=== PATIENT | female | born 1945 | race Caucasian/White ===

== ENCOUNTER 2017-02-12 10:55 | Outpatient (CLI) | payer MEDICARE, OTHER ==
[2017-02-12 18:10] LABS: BASOPHILS # (AUTO) 0.1 10^3/uL (0.0-0.1); BASOPHILS % (AUTO) 0.8 %; EOSINOPHILS # (AUTO) 0.1 10^3/uL (0.0-0.7); EOSINOPHILS % (AUTO) 1.8 %; HCT - HEMATOCRIT 38.4 % (37.0-47.0); HGB - HEMOGLOBIN 13.1 g/dL (12.0-16.0); LYMPHOCYTES # (AUTO) 1.7 10^3/uL (1.5-3.5); LYMPHOCYTES % (AUTO) 24.6 %; MEAN CORPUSCULAR HEMOGLOBIN 33.4 pg (27.0-31.0); MEAN CORPUSCULAR VOLUME 98.2 fL (81.0-99.0); MEAN PLATELET VOLUME 8.5 fL (7.9-10.8); MONOCYTES # (AUTO) 0.5 10^3/uL (0.0-1.0); MONOCYTES % (AUTO) 7.5 %; NEUTROPHILS # (AUTO) 4.5 10^3/uL (1.5-6.6); NEUTROPHILS % (AUTO) 65.3 %; RED BLOOD COUNT 3.91 10^6/uL (4.20-5.40); RED CELL DISTRIBUTION WIDTH 13.4 % (12.0-15.0); UNCORRECTED WHITE BLOOD COUNT 6.9 x10^3/uL; WHITE BLOOD COUNT 6.9 x10^3/uL (4.8-10.8)
[2017-02-12 18:46] LABS: ALBUMIN/GLOBULIN RATIO 1.4 (1.0-2.2); BILIRUBIN,TOTAL 0.7 mg/dL (0.2-1.0); CALCIUM 9.3 mg/dL (8.5-10.3); CREATININE 0.6 mg/dL (0.4-1.0); POTASSIUM 4.3 mmol/L (3.5-5.0); TOTAL PROTEIN 7.3 g/dL (6.7-8.2)
== END 2017-02-12 10:56 | disposition home or self-care (01) ==
LOC: LAB.F 10:55
PROVIDERS: ATTEND Physician Assistant Medical
DX: R25.2 Cramp and spasm (principal); Z86.2 Personal history of diseases of the blood and blood-forming organs and certain disorders involving the immune mechanism
CPT/HCPCS: 36415; 80053; 85025

== ENCOUNTER 2017-02-23 13:56 | Outpatient (CLI) | payer MEDICARE, OTHER ==
--- NOTE | 2017-02-23 16:30 | Ultrasound Report ---
RIGHT BREAST ULTRASOUND: 02/23/2017 CLINICAL INDICATION: Pain and possible palpable abnormality 12 o'clock right breast. TECHNIQUE: Real-time scanning was performed with union representative static images obtained. FINDINGS: Ultrasound of the right upper breast was performed. Heterogeneous parenchyma is seen. No discrete solid or cystic mass is identified. No sonographically suspicious findings are appreciated . IMPRESSION: NEGATIVE EXAMINATION. RECOMMENDATION: Routine annual screening unless otherwise clinically indicated. BIRADS CATEGORY 1 - NEGATIVE. JOB #: [id number] EXT JOB #:
--- NOTE | 2017-02-23 16:32 | Ultrasound Report ---
LEFT BREAST ULTRASOUND: 02/23/2017 CLINICAL INDICATION: Pain and possible palpable abnormality lateral left breast. TECHNIQUE: Real-time scanning was performed with commercial representative static images obtained. FINDINGS: Ultrasound of the 3 o'clock position left breast was performed. There is an incidental co mplicated cyst at 2 cm from the nipple, measuring 4 mm. No sonographically suspicious findings are i dentified. IMPRESSION: BENIGN FINDINGS. RECOMMENDATION: Routine annual screening unless otherwise clinically indicated. BIRADS CATEGORY 2 - BENIGN FINDINGS. JOB #: [id number] EXT JOB #:[id number]
--- NOTE | 2017-02-23 16:34 | Mammography Report ---
DIGITAL DIAGNOSTIC MAMMOGRAM: 02/23/2017 CLINICAL INDICATION: Pain and palpable abnormalities on clinical examination. COMPARISON: 02/09/2015, 01/12/2014, 01/04/2013, 10/07/2011, 01/09/2010 TECHNIQUE: Bilateral CC and MLO views, bilateral true lateral views, right laterally exaggerated sales representative aircraft niocaudal view. FINDINGS: The breasts demonstrate heterogeneously dense fibroglandular parenchyma bilaterally. Coar se and punctate, typically benign calcifications are present. No suspicious masses, clustered microc alcifications, or regions of architectural distortion are identified. Specifically, no mammographic abnormality is appreciated at the 12 o'clock position of the right breast or the 3 o'clock position o f the left breast. Please also refer to bilateral breast ultrasounds of the same day. IMPRESSION: BENIGN FINDINGS. RECOMMENDATION: Routine annual screening unless otherwise clinically indicated. BIRADS CATEGORY 2 - BENIGN FINDINGS. STANDARD QUALIFYING STATEMENTS 1. This examination was reviewed with the aid of Computer-Aided Detection (CAD). 2. A negative or benign imaging report should not delay biopsy if clinically suspicious findings are present. Consider surgical consultation if warranted. More than 5% of cancers are not identified by i cristina. 3. Dense breasts may obscure an underlying neoplasm. JOB #: [id number] EXT JOB #:[id number]
== END 2017-02-23 13:57 | disposition home or self-care (01) ==
LOC: DI 13:56
PROVIDERS: ATTEND Physician Assistant Medical
DX: N64.4 Mastodynia (principal)
CPT/HCPCS: 76642; G0204; 77066

== ENCOUNTER 2017-03-10 13:11 | Outpatient (CLI) | payer MEDICARE, OTHER ==
--- NOTE | 2017-03-12 15:25 | DEXA Report ---
DEXA: 03/10/2017 HISTORY: Postmenopausal female, smoker. TECHNIQUE: Dual energy x-ray absorptiometry (DXA) was performed on a [employer] system. Regions measured are the AP spine, femoral neck, and, if needed, forearm. COMPARISON: None. In accordance with the International Society for Clinical Densitometry (ISCD) guidelines, data from previous exams may be reanalyzed using current recommendations and techniques. This is done to allow a more accurate basis for comparison with the current study. FINDINGS LUMBAR SPINE DATA: REGION BMD (g/cm/cm) T-SCORE Z-SCORE L1 0.644 -4.1 -2.1 L2 0.702 -4.1 -2.2 L3 0.842 -3.0 -1.0 L4 0.904 -2.5 -0.5 TOTAL 0.781 -3.3 -1.4 NOTE: All evaluable vertebrae are used for classification. HIP DATA: REGION BMD (g/cm/cm) T-SCORE Z-SCORE Neck 0.683 -2.6 -0.6 TOTAL 0.691 -2.5 -0.7 NOTE: The femoral neck or total proximal femur, whichever is lowest, is used for classification. IMPRESSION THE WHO CLASSIFICATION BASED ON THE INTERNATIONAL REFERENCE STANDARD: OSTEOPOROSIS. FRACTURE RISK: HIGH. RECOMMENDATION: Patients with diagnosis of osteoporosis or osteopenia should have regular bone mineral density assessment. For those eligible for Medicare, routine testing is allowed once every 2 years. Testing frequency can be increased for patients who have rapidly progressing disease or for those who are receiving medical therapy to restore bone mass. COMMENT: World Health Organization (WHO) definitions for osteoporosis and osteopenia: NORMAL BMD: T-score at -1.0 or higher, fracture risk is low. OSTEOPENIA BMD: T-score between -1.0 and -2.5, fracture risk is increased. OSTEOPOROSIS BMD: T-score at -2.5 or lower, fracture risk high. National Osteoporosis Foundation recommends: 1. Obtain adequate dietary calcium (at least 1200 mg per day) and vitamin D (400 -800 international units per day). 2. Participate, as appropriate, in regular weightbearing and muscle- strengthening exercise. 3. Avoid tobacco use and reduce alcohol and caffeine intake. 4. For more detailed information see the website at www.NOF.org. MTDD
== END 2017-03-10 13:12 | disposition home or self-care (01) ==
LOC: DI 13:11
PROVIDERS: ATTEND Physician Assistant Medical
DX: Z13.820 Encounter for screening for osteoporosis (principal); M81.0 Age-related osteoporosis without current pathological fracture; Z78.0 Asymptomatic menopausal state
CPT/HCPCS: 77080

== ENCOUNTER 2017-08-10 10:05 | Outpatient (CLI) | payer MEDICARE, OTHER ==
[2017-08-10 11:08] LABS: BUN - BLOOD UREA NITROGEN 16 mg/dL (6-20); CALCIUM 9.3 mg/dL (8.5-10.3); CARBON DIOXIDE - CO2 26 mmol/L (21-32); CHLORIDE 100 mmol/L (101-111); CHOL/HDL RATIO 2.5 (<4.4); CHOLESTEROL 160 mg/dL; CREATININE 0.6 mg/dL (0.4-1.0); GFR - MDRD 98 (>89); GLUCOSE 92 mg/dL (70-100); HDL CHOLESTEROL 65 mg/dL; SODIUM 135 mmol/L (135-145)
[2017-08-10 11:31] LABS: LDL CHOLESTEROL,DIRECT 65 mg/dL
== END 2017-08-10 10:06 | disposition home or self-care (01) ==
LOC: LAB.F 10:05
PROVIDERS: ATTEND Internal Medicine
DX: Z00.00 Encounter for general adult medical examination without abnormal findings (principal); E87.1 Hypo-osmolality and hyponatremia; Z13.220 Encounter for screening for lipoid disorders
CPT/HCPCS: 36415; 80048; 80061; 83721

== ENCOUNTER 2018-03-01 10:15 | Outpatient (CLI) | payer MEDICARE, OTHER ==
--- NOTE | 2018-03-02 08:57 | Mammography Report ---
Reason: SCREENING MAMMO Procedure Date: 03/01/2018 Accession Number: [id number] / [id number] Procedure: [facility]CI - Screening Mammo w/Sam CPT Code: FULL RESULT: EXAM: Screening Mammo w/Sam DATE: 03/01/2018 10:22 AM CLINICAL HISTORY: 72-year-old female presents for screening. TECHNIQUE: Bilateral CC and MLO views were obtained. COMPARISON: 02/23/2017, 02/09/2015, 01/12/2014, 01/04/2013. FINDINGS: The breasts demonstrate extremely dense parenchyma bilaterally, limiting the sensitivity of mammography. Typically benign coarse right breast calcifications are noted. No suspicious masses, clustered microcalcifications, or regions of architectural distortion are identified. IMPRESSION: Benign findings RECOMMENDATION: Routine annual screening unless otherwise clinically indicated. BIRADS CATEGORY 2: Benign findings STANDARD QUALIFYING STATEMENTS: 1. This examination was not reviewed with the aid of Computer-Aided Detection (CAD). 2. A negative or benign imaging report should not delay biopsy if clinically suspicious findings are present. Consider surgical consultation if warranted. More than 5% of cancers are not identified by imaging. 3. Dense breasts may obscure an underlying neoplasm. 4. This examination was reviewed with the aid of 3D breast imaging (tomosynthesis).
== END 2018-03-01 10:16 | disposition home or self-care (01) ==
LOC: DI 10:15
DX: Z12.31 Encounter for screening mammogram for malignant neoplasm of breast (principal)
CPT/HCPCS: 77063; 77067

== ENCOUNTER 2019-03-02 10:15 | Outpatient (CLI) | payer MEDICARE, OTHER ==
--- NOTE | 2019-03-02 12:52 | Mammography Report ---
Reason: ROUTINE MAMMO Procedure Date: 03/02/2019 Accession Number: [id number] / [id number] Procedure: MGS - Screening Mammo Dig Bilat CPT Code: Final Report FULL RESULT: EXAM: Screening Mammo Dig Bilat DATE: 03/02/2019 10:33 AM CLINICAL HISTORY: The patient is an asymptomatic 73-year-old female presented for screening mammography. No reported personal nor family history of breast cancer. TECHNIQUE: (B) - Bilateral CC and MLO views were obtained. Exaggerated CC views obtained. COMPARISON: 03/01/2018, 02/23/2017, 02/09/2015, 01/12/2014, 01/04/2013 PARENCHYMAL PATTERN: (D) - The breasts demonstrate heterogeneously dense fibroglandular parenchyma bilaterally. This pattern limits mammographic sensitivity. FINDINGS: The pattern of asymmetry is stable given positional variation. Scattered and loosely-grouped calcifications again noted in both breasts. There are no suspicious masses, pleomorphic calcifications, or areas of distortion. IMPRESSION: Benign findings. BI-RADS category 2. RECOMMENDATION: (ANNUAL) - Recommend routine annual screening mammography. BI-RADS CATEGORY: (2) - Benign Findings. STANDARD QUALIFYING STATEMENTS: 1. This examination was not reviewed with the aid of Computer-Aided Detection (CAD). 2. A negative or benign imaging report should not preclude biopsy if clinically suspicious findings are present. 3. Dense breasts may obscure an underlying neoplasm. 4. This examination was reviewed the aid of 3D breast imaging (tomosynthesis).
== END 2019-03-02 10:16 | disposition home or self-care (01) ==
LOC: DI.S 10:15
DX: Z12.31 Encounter for screening mammogram for malignant neoplasm of breast (principal)
CPT/HCPCS: 77067

== ENCOUNTER 2019-05-20 08:01 | Outpatient (CLI) | payer MEDICARE, OTHER ==
[2019-05-20 10:30] LABS: BASOPHILS # (AUTO) 0.1 10^3/uL (0.0-0.1); BASOPHILS % (AUTO) 0.7 %; EOSINOPHILS # (AUTO) 0.2 10^3/uL (0.0-0.7); EOSINOPHILS % (AUTO) 3.3 %; HGB - HEMOGLOBIN 13.3 g/dL (12.0-16.0); LYMPHOCYTES # (AUTO) 1.3 10^3/uL (1.5-3.5); LYMPHOCYTES % (AUTO) 19.9 %; MEAN CORPUSCULAR HEMOGLOBIN 34.4 pg (27.0-31.0); MEAN CORPUSCULAR HGB CONC 34.7 g/dL (32.0-36.0); MEAN PLATELET VOLUME 10.3 fL (7.9-10.8); MONOCYTES # (AUTO) 0.5 10^3/uL (0.0-1.0); MONOCYTES % (AUTO) 6.9 %; NEUTROPHILS # (AUTO) 4.6 10^3/uL (1.5-6.6); NEUTROPHILS % (AUTO) 68.9 %; PLT - PLATELET COUNT 320 10^3/uL (130-450); RED BLOOD COUNT 3.87 10^6/uL (4.20-5.40); RED CELL DISTRIBUTION WIDTH 13.1 % (12.0-15.0); WHITE BLOOD COUNT 6.7 x10^3/uL (4.8-10.8)
[2019-05-20 10:44] LABS: ALBUMIN 4.2 g/dL (3.2-5.5); ALBUMIN/GLOBULIN RATIO 1.1 (1.0-2.2); BILIRUBIN,TOTAL 0.8 mg/dL (0.2-1.0); CALCIUM 9.3 mg/dL (8.5-10.3); CREATININE 0.7 mg/dL (0.4-1.0); TOTAL PROTEIN 8.1 g/dL (6.7-8.2)
== END 2019-05-20 08:02 | disposition home or self-care (01) ==
LOC: LAB.S 08:01
PROVIDERS: ATTEND Family Medicine
DX: R51 Headache (principal); R25.2 Cramp and spasm; Z86.2 Personal history of diseases of the blood and blood-forming organs and certain disorders involving the immune mechanism
CPT/HCPCS: 36415; 80053; 80061; 83721; 84443; 85025

== ENCOUNTER 2019-06-27 13:02 | Outpatient (CLI) | payer MEDICARE, OTHER ==
[2019-06-27] MEDS ORDERED: GADOBUTROL 7.5 MMOL/7.5 ML VIAL ONE (13:15)
[2019-06-27] MEDS ORDERED: GADOBUTROL 7.5 MMOL/7.5 ML VIAL IVP ONE (13:55)
--- NOTE | 2019-06-27 15:50 | MRI Report ---
Reason: HEADACHE Procedure Date: 06/27/2019 Accession Number: [id number] / [id number] Procedure: MRI - Brain W/WO CPT Code: Final Report FULL RESULT: MRI BRAIN WITHOUT AND WITH CONTRAST INDICATION: 73-year-old female. Right-sided headache for a few months. Please assess. TECHNIQUE: 1. Sagittal T1. 2. Coronal fat-saturated T2. 3. Axial T1 MP rage, FLAIR, T2, T2* GRE and DWI. 4. 5.5 cc IV Gadavist. Postcontrast T1 3D MP RAGE axial sequence. COMPARISON: None. FINDINGS: There is mild generalized prominence of the cerebral cortical sulci. Ventricular size is normal. There is a small focus of T2/FLAIR hyperintensity involving the cortex and underlying white matter, along the inferior margin of the left central sulcus (see images 17 and 16 of series 701). This appears to relate to an underlying developmental venous anomaly, capillary telangiectasia or similar benign vascular malformation (see images 75 and 76 of series 1002 and see image 78 of series 1003). A mild amount of white matter disease is demonstrated in the supratentorial brain, manifested as small T2 hyperintensities that are scattered throughout the periventricular, deep and subcortical white matter bilaterally. A frontoparietal distribution predominates. This most likely represents chronic microangiopathy. There appear to be flow voids for the main intracranial arteries. No abnormal diffusion restriction is demonstrated. No evidence of acute or chronic hemorrhage on the T2* GRE sequence. No enhancing space-occupying mass lesion is demonstrated. No pathologic meningeal or cranial nerve enhancement is identified. There appears to be normal intravascular contrast enhancement in the dural venous sinuses and deep venous structures. This effectively excludes the possibility of dural venous sinus thrombosis. Limited assessment of the orbits reveals no gross pathology. There is mild mucosal thickening in a few ethmoid air cells. Minor mucosal thickening is seen in the posterior recess of the left chamber of the sphenoid sinus. The paranasal sinuses are otherwise essentially clear. No air-fluid level is identified. No mastoid or middle ear effusion is demonstrated. The marrow signal intensity in the regional skeletal structures is unremarkable. IMPRESSION: 1. Small focus of T2 hyperintensity in white matter and cortex and deep to the left central sulcus appears to relate to underlying developmental venous anomaly, capillary telangiectasia or similar benign vascular malformation. 2. A mild amount of white matter disease is identified in the supratentorial brain, likely representing chronic microangiopathy. 3. No other significant intracranial pathology is demonstrated. In particular, there is no evidence of infarction, hemorrhage, space-occupying mass lesion or other potential cause for headaches.
== END 2019-06-27 13:03 | disposition home or self-care (01) ==
LOC: DI 13:02
PROVIDERS: ATTEND Family Medicine
DX: R90.82 White matter disease, unspecified (principal)
CPT/HCPCS: 70553; A9585

== ENCOUNTER 2020-02-20 15:28 | Outpatient (CLI) | payer MEDICARE, OTHER ==
--- NOTE | 2020-02-21 15:07 | Mammography Report ---
BILATERAL DIGITAL SCREENING MAMMOGRAM 3D/2D: 02/20/2020 CLINICAL: Routine screening. Comparison is made to exams dated: 03/02/2019 mammogram, 03/01/2018 mammogram, 02/23/2017 mammogram, and 02/09/2015 mammogram - [facility]. The tissue of both breasts is extremely den se, which lowers the sensitivity of mammography. There are benign calcifications in the right breast. No significant masses, calcifications, or other findings are seen in either breast. There has been no significant interval change. IMPRESSION: BENIGN There is no mammographic evidence of malignancy. A 1 year screening mammogram is recommended. This exam was interpreted at Station ID: [id number]. NOTE: For mammograms, a report in lay terms will be sent to the patient. Approximately 15% of breast malignancies will not be visualized mammographically. In the management of a palpable breast mass, a negative mammogram must not discourage biopsy of a clinically suspicious lesion. Electronically Signed By: Bradley scott/kelley:02/21/2020 13:31:19 ACR BI-RADS Category 2: Benign Finding(s) 3342F PARENCHYMAL PATTERN: (VD) - The breast(s) demonstrate(s) extremely dense parenchyma, limiting the sen sitivity of mammography. BI-RADS CATEGORY: (2) - 2 RECOMMENDATION: (ANNUAL) - Recommend routine annual screening mammography. [id number] 1 year screening LATERALITY: (B)
== END 2020-02-20 15:29 | disposition home or self-care (01) ==
LOC: DI 15:28
DX: Z12.31 Encounter for screening mammogram for malignant neoplasm of breast (principal)
CPT/HCPCS: 77063; 77067

== ENCOUNTER 2021-06-17 08:57 | Outpatient (CLI) | payer MEDICARE, OTHER ==
--- NOTE | 2021-06-18 08:35 | Mammography Report ---
BILATERAL DIGITAL SCREENING MAMMOGRAM 3D/2D WITH EXAGGERATED CC: 06/17/2021 CLINICAL: Routine screening. Comparison is made to exams dated: 03/02/2019 mammogram, 03/01/2018 mammogram, and 02/23/2017 mammog [facility]. The tissue of both breasts is extremely dense, which lowers the sensitivity of mammography. There are benign calcifications in the right breast. No significant masses, calcifications, or other findings are seen in either breast. There has been no significant interval change. IMPRESSION: BENIGN There is no mammographic evidence of malignancy. A 1 year screening mammogram is recommended. This exam was interpreted at Station ID: [id number]. NOTE: For mammograms, a report in lay terms will be sent to the patient. Approximately 15% of breast malignancies will not be visualized mammographically. In the management of a palpable breast mass, a negative mammogram must not discourage biopsy of a clinically suspicious lesion. Electronically Signed By: Heidi chung/kelley:06/17/2021 11:15:48 ACR BI-RADS Category 2: Benign Finding(s) 3342F PARENCHYMAL PATTERN: (VD) - The breast(s) demonstrate(s) extremely dense parenchyma, limiting the sen sitivity of mammography. BI-RADS CATEGORY: (2) - 2 RECOMMENDATION: (ANNUAL) - Recommend routine annual screening mammography. [id number] 1 year screening LATERALITY: (B)
== END 2021-06-17 08:58 | disposition home or self-care (01) ==
LOC: DI.S 08:57
PROVIDERS: ATTEND Nurse Practitioner Family
DX: Z12.31 Encounter for screening mammogram for malignant neoplasm of breast (principal)

== ENCOUNTER 2021-09-17 10:56 | Outpatient (CLI) | payer MEDICARE, OTHER ==
--- NOTE | 2021-09-17 11:42 | CT Report ---
PROCEDURE: Low Dose Lung Cancer Screen INDICATIONS: OSTEOPENIA, SMOKER TECHNIQUE: Noncontrast low-dose images were acquired from the pulmonary apices to the posterior costophrenic ang les. Multiplanar MIP reformats were then acquired. For radiation dose reduction, the following was used: automated exposure control, adjustment of mA and/or kV according to patient size. COMPARISON: None. FINDINGS: Image quality: Excellent. Lungs and pleura: There is a pleural-based density in the extreme right apex which most likely repre sents scarring. It measures 1.5 x 0.7 cm on image 54/4. No other pulmonary nodular densities are iden tified. Mild centrilobular emphysema. Mediastinum: Heart size is normal. No pericardial effusion. No mediastinal adenopathy by size crit eria. Thoracic aorta and central pulmonary arteries are normal in size. Esophagus is normal in lucy luis daniel. No hiatal hernia. Bones and chest wall: No suspicious bony lesions. No vertebral body compression fractures. No axil ramesh or supraclavicular adenopathy by size criteria. Thyroid is grossly unremarkable as visualized. Abdomen: Multiple low-density liver lesions most likely represent cysts versus hemangiomata. There is moderate left hydronephrosis. Tiny right renal stones are noted. There is no right hydronephrosis. IMPRESSION: 1. LungRads Category 3: Probably benign findings-short term follow up suggested; includes nodules wit h a low likelihood of becoming a clinically significant cancer: Probable nodular scarring in the righ t apex. 2. 6 month follow-up low-dose noncontrast CT of the chest is recommended for further evaluation. 3. Clinically significant or potentially clinically significant findings (nonlung cancer): Mild centr ilobular emphysema, moderate left hydronephrosis, right nephrolithiasis. Comment: Recommend CT KUB for evaluation of moderate left hydronephrosis. Reviewed by: Nick Smiley MD on 09/17/2021 11:40 AM PDT Approved by: Nick Smiley MD on 09/17/2021 11:40 AM PDT Station ID: [id number]
== END 2021-09-17 10:57 | disposition home or self-care (01) ==
LOC: DI 10:56
PROVIDERS: ATTEND Nurse Practitioner Family
DX: Z12.2 Encounter for screening for malignant neoplasm of respiratory organs (principal); J43.2 Centrilobular emphysema; N13.30 Unspecified hydronephrosis; N20.0 Calculus of kidney; F17.210 Nicotine dependence, cigarettes, uncomplicated

== ENCOUNTER 2021-09-19 10:49 | Outpatient (CLI) | payer MEDICARE, OTHER ==
--- NOTE | 2021-09-20 09:29 | DEXA Report ---
PROCEDURE: Dexa Spine and/or Hip INDICATIONS: OSTEOPENIA TECHNIQUE: Dual energy x-ray absorptiometry (DXA) was performed on a [employer] System. Regions measur ed are the AP Spine, femoral neck, and if needed forearm. COMPARISON: DEXA 03/10/2017. FINDINGS: Lumbar Spine: Bone Mineral Density 0.851 g/cm/cm,T score -2.7, osteoporosis. Left Hip: Bone Mineral Density 0.676 g/cm/cm,T score -2.6, osteoporosis. Left Femoral Neck: Bone Mineral Density 0.654 g/cm/cm, T score -2.8, osteoporosis. (T score greater or equal to -1.0: NORMAL) (T score from -1.1 to -2.4: OSTEOPENIA) (T score less than or equal to -2.5 to: OSTEOPOROSIS) Impression: 1. Based on WHO criteria, the patient is osteoporotic. 2. Compared to the last exam dated 03/10/2017, the patient's bone mineral density in lumbar spine has increased by 9.0%, which is statistically significant. Her bone mineral density in the left hip has not significantly changed. Patients with diagnosis of osteoporosis or osteopenia should have regular bone mineral density assess ment. For those eligible for Medicare, routine testing is allowed once every 2 years. Testing frequ ency can be increased for patients who have rapidly progressing disease or for those who are receivin g medical therapy to restore bone mass. Reviewed by: Monserrat Kelly MD on 09/20/2021 9:28 AM PDT Approved by: Monserrat Kelly MD on 09/20/2021 9:28 AM PDT Station ID: [id number]
== END 2021-09-19 10:50 | disposition home or self-care (01) ==
LOC: DI 10:49
PROVIDERS: ATTEND Nurse Practitioner Family
DX: M81.0 Age-related osteoporosis without current pathological fracture (principal)

== ENCOUNTER 2022-04-15 09:37 | Outpatient (CLI) | payer MEDICARE, OTHER ==
--- NOTE | 2022-04-15 14:23 | CT Report ---
PROCEDURE: Low Dose Lung Cancer Screen INDICATIONS: HIST OF SMOKING TECHNIQUE: Noncontrast low-dose axial images were acquired from the pulmonary apices to the posterior costophren ic angles. Multiplanar MIP reformats were then reconstructed. For radiation dose reduction, the follo wing was used: automated exposure control, adjustment of mA and/or kV according to patient size. COMPARISON: CT chest lung cancer screening 09/17/2021 FINDINGS: Image quality: Adequate. Lungs and pleura: No significant change in the previously described pleural-based opacity at the rig ht lung apex measuring 1.7 x 0.8 cm (4/42) previously 1.7 x 0.7 cm remeasured. No definite new suspic ious or enlarging pulmonary nodule. Mild emphysema. No pleural effusion. Mediastinum: No pericardial effusion. No mediastinal adenopathy by size criteria. Thoracic aorta a nd central pulmonary arteries are normal in size. Esophagus is normal in caliber. Bones and chest wall: Multilevel degenerative change of the visualized spine. No axillary or suprac lavicular adenopathy by size criteria. Abdomen: Liver cysts present as before. Redemonstrated left hydronephrosis, not substantially changed , etiology unclear on this exam. Few nonobstructing right renal stones present. IMPRESSION: 1. Lung RADS category 2 - benign. Recommendation: Continue annual screening with low-dose noncontrast chest CT in 12 months. 2. Redemonstrated left hydronephrosis, etiology unclear on this exam. CT KUB or CT IVP could be obtai quyen for further evaluation if indicated. Reviewed by: Cristino Blanco MD on 04/15/2022 2:22 PM PST Approved by: Cristino Blanco MD on 04/15/2022 2:22 PM PST Station ID: [id number]
== END 2022-04-15 09:38 | disposition home or self-care (01) ==
LOC: DI 09:37
PROVIDERS: ATTEND Nurse Practitioner Family
DX: F17.210 Nicotine dependence, cigarettes, uncomplicated (principal); Z12.2 Encounter for screening for malignant neoplasm of respiratory organs

== ENCOUNTER 2022-05-15 08:49 | Outpatient (CLI) | payer MEDICARE, OTHER ==
--- NOTE | 2022-05-15 17:26 | XRAY Report ---
PROCEDURE: Hips 2V BILAT INDICATIONS: BILATERAL HIP JOINT PAIN TECHNIQUE: 2 views of the hip were acquired. COMPARISON: None FINDINGS: Bones: No fractures or dislocations. No suspicious bony lesions. The visualized pelvic ring appear s intact. None moderate bilateral degenerative hip joint space narrowing. No erosions. Degenerative sclerotic changes of the pubic symphysis are also present. Soft tissues: No suspicious soft tissue calcifications or masses. 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 Reviewed by: Delia Mcneill MD on 05/15/2022 4:42 PM PST Approved by: Delia Mcneill MD on 05/15/2022 4:42 PM PST Station ID: [id number]
== END 2022-05-15 08:50 | disposition home or self-care (01) ==
LOC: DI.S 08:49
PROVIDERS: ATTEND Nurse Practitioner Family
DX: M16.0 Bilateral primary osteoarthritis of hip (principal)

== ENCOUNTER 2022-05-23 13:19 | Outpatient (CLI) | payer MEDICARE, OTHER ==
--- NOTE | 2022-05-23 16:28 | Ultrasound Report ---
PROCEDURE: Retroperitoneal INDICATIONS: HYDRONEPHROSIS, BILATERAL HIP PAIN TECHNIQUE: Real-time scanning was performed of the retroperitoneal organs, with image documentation. COMPARISON: CT lung cancer screening the 04/15/2022. FINDINGS: Kidneys: Kidneys are normal in size. Right kidney measures 10.7 cm long; left kidney measures 11.7 cm long. Right renal cortical thickness is 0.9 cm; left renal cortical thickness is 1.1 cm. No keith d masses or nephrolithiasis. Simple left renal cysts. Largest measuring 3.1 cm. Moderate left hydrone phrosis. Pancreas: Visualized portions of the pancreas are sonographically normal. Aorta: Visualized aorta is normal in caliber at 3 cm or less. Iliac arteries: Proximal common iliac arteries are normal in caliber at 2.5 cm or less. IVC: Intrahepatic inferior vena cava is patent. Bladder: Pre-void bladder volume is 59 mL. No intraluminal masses or stones. On pre-void images, jayashree th ureteral jets are noted with color Doppler interrogation. (Of note, ureteral jets may not be dete ctable in up to 25% of cases due to insufficient differences in specific gravity between ureteral and bladder urine). Miscellaneous: No free abdominal fluid. Simple liver cyst measuring 2.1 cm. IMPRESSION: Moderate left hydronephrosis. Recommend CT IVP for further evaluation. Reviewed by: Bradley Calderón MD on 05/23/2022 4:27 PM PST Approved by: Bradley Calderón MD on 05/23/2022 4:27 PM PST Station ID: [id number]
== END 2022-05-23 13:20 | disposition home or self-care (01) ==
LOC: DI 13:19
PROVIDERS: ATTEND Nurse Practitioner Family
DX: N13.30 Unspecified hydronephrosis (principal)

== ENCOUNTER 2022-06-18 10:00 | Outpatient (CLI) | payer MEDICARE, OTHER ==
--- NOTE | 2022-06-19 10:22 | Mammography Report ---
BILATERAL DIGITAL SCREENING MAMMOGRAM 3D/2D WITH EXAGGERATED CC: 06/18/2022 CLINICAL: Routine screening. Comparison is made to exams dated: 06/17/2021 mammogram and 02/20/2020 mammogram - [facility]. Both breasts are extremely dense, which lowers the sensitivity of mammography (category d />75% gland ular tissue). There are benign calcifications in the right breast. No significant masses, calcifications, or other findings are seen in either breast. There has been no significant interval change. IMPRESSION: BENIGN There is no mammographic evidence of malignancy. A 1 year screening mammogram is recommended. Based on the Tyrer Cuzick model (a risk assessment model) the patients lifetime risk is 5.5% and her 10 year risk is 0.0%. According to the ACR, ACS, and NCCN guidelines, an annual breast MRI exam margi g with mammogram is recommended if the patients lifetime risk is 20% or greater. This exam was interpreted at Station ID: [id number]. NOTE: For mammograms, a report in lay terms will be sent to the patient. Approximately 15% of breast malignancies will not be visualized mammographically. In the management of a palpable breast mass, a negative mammogram must not discourage biopsy of a clinically suspicious lesion. Electronically Signed By: Mark calderón/kelley:06/18/2022 12:01:35 letter sent: No_Letter ACR BI-RADS Category 2: Benign Finding(s) 3342F PARENCHYMAL PATTERN: (VD) - The breast(s) demonstrate(s) extremely dense parenchyma, limiting the sen sitivity of mammography. BI-RADS CATEGORY: (2) - 2 Mammogram [id number] 1 year screening LATERALITY: (B)
== END 2022-06-18 10:01 | disposition home or self-care (01) ==
LOC: DI.S 10:00
DX: Z12.31 Encounter for screening mammogram for malignant neoplasm of breast (principal)

== ENCOUNTER 2023-04-22 09:44 | Outpatient (CLI) | payer MEDICARE, OTHER ==
[2023-04-22 10:12] LABS: CREATININE 0.7 mg/dL (0.6-1.3)
[2023-04-22] MEDS ORDERED: iohexoL-300 100 ML VIAL ONE (10:12)
[2023-04-22] MEDS: iohexoL-300 100 ML VIAL IVP ONE (13:43)
--- NOTE | 2023-04-22 14:36 | CT Report ---
PROCEDURE: IVP INDICATIONS: HEMATURIA CONTRAST: Omni 300 140ml TECHNIQUE: A [address] of the abdomen and pelvis was performed. Non-contrast and contrast images were recorded and evaluated at appropriate window settings. Images were recorded and evaluated at appropriate windo w settings. Reformats: coronal and sagittal. For radiation dose reduction, the following was used: au tomated exposure control, adjustment of convex left scoliosis. 3 interval casting with improved align ment at the tibia and fibula fractures. MA and/or kV according to patient size. COMPARISON: Retroperitoneal ultrasound 05/23/2022. FINDINGS: Image quality: Diagnostic. Urinary system: Right kidney: 3 nonobstructing right renal calculi measuring up to 3 mm. No hydronephrosis. The opaci fied renal calyces and ureter appear normal without filling defect. No solid masses or complex cysts was require follow-up. Left kidney: No left nephrolithiasis. Redemonstration of moderate hydronephrosis. There is soft tissu e filling defect in the proximal ureter measuring approximately 2.0 x 1.0 cm (series 10, image 44). T he ureter is not opacified distal to the filling defect. No solid masses or complex cysts which require follow up. Simple left renal cysts including exophytic superior pole cyst measuring up to 3.6 cm and inferior pole simple cyst measuring 1.6 cm. Bladder: Bladder wall thickness is normal, accounting for underdistention. No calcified bladder stone s. No filling defect within the opacified bladder. OTHER Lung bases and heart: Bibasilar atelectasis. Liver: Multiple hepatic cysts.. Gallbladder and biliary tree: No radiopaque stones or wall thickening. No biliary dilation. Spleen: No splenomegaly. Pancreas: No pancreatic ductal dilation. Adrenals: No adrenal nodule. Bowel and peritoneum: No bowel distension. No pathologic free fluid. Abdominal Lymph nodes: No central or retroperitoneal adenopathy. Vessels: Dense aortobiiliac atherosclerotic calcifications. No aneurysmal dilatation of the abdominal aorta.. Reproductive organs: Unremarkable. Pelvic Lymph nodes: Unremarkable. Bones: Degenerative disc disease without acute or suspicious osseous abnormality. IMPRESSION: Moderate left hydronephrosis with soft tissue filling defect in the proximal left ureter measuring up to 2.0 cm. Finding is concerning for malignancy. Recommend urology consultation. Nonobstructing right renal calculi measuring up to 3 mm. No right hydroureteronephrosis. Reviewed by: Amisha Gaming MD on 04/22/2023 2:35 PM PST Approved by: Amisha Gaming MD on 04/22/2023 2:35 PM PST Station ID: [id number]
== END 2023-04-22 09:45 | disposition home or self-care (01) ==
LOC: LAB 09:44
PROVIDERS: ATTEND Urology
DX: R31.9 Hematuria, unspecified (principal); N13.30 Unspecified hydronephrosis; N20.0 Calculus of kidney; R93.422 Abnormal radiologic findings on diagnostic imaging of left kidney
CPT/HCPCS: 36415; 74178; 82565; Q9967

== ENCOUNTER 2023-05-25 06:34 | Day surgery (SDC) | payer MEDICARE, OTHER ==
[2023-05-25] MEDS: LACTATED RINGERS 1,000 ML IV ONE ×3 (06:43→08:47)
[2023-05-25] MEDS ORDERED: PROPOFOL 200 MG/20 ML VIAL IVP ONE (06:57)
[2023-05-25] MEDS ORDERED: LIDOCAINE-PF 2% 10 ML AMP SUBQ ONE (06:57)
[2023-05-25] MEDS ORDERED: ONDANSETRON 4 MG/2 ML VIAL ONE (07:00)
[2023-05-25] MEDS ORDERED: fentaNYL 100 MCG/2 ML VIAL ONE (07:01)
[2023-05-25] MEDS ORDERED: LIDOCAINE JELLY 2% 6 ML JEL.PF.APP ONE (07:07)
[2023-05-25] MEDS ORDERED: iohexoL-240 10 ML VIAL IVP ONE (07:07)
[2023-05-25] MEDS ORDERED: ceFAZolin 1 GM VIAL ONE (07:21)
[2023-05-25] MEDS ORDERED: ceFAZolin 2 GM VIAL ONE (07:24)
[2023-05-25] MEDS ORDERED: ATROPINE ABBOJECT 1 MG/10 ML SYRINGE IVP PRN (07:28)
[2023-05-25] MEDS ORDERED: NALOXONE 0.4 MG/ML VIAL IVP PRN (07:28)
[2023-05-25] MEDS ORDERED: MORPHINE 2 MG/ML CARPUJECT IVP PRN (07:28)
[2023-05-25] MEDS ORDERED: ONDANSETRON 4 MG/2 ML VIAL IVP PRN ×2 (07:28→08:48)
[2023-05-25] MEDS ORDERED: METOCLOPRAMIDE 10 MG/2 ML VIAL IVP PRN (07:28)
[2023-05-25] MEDS ORDERED: ePHEDrine 50 MG/ML VIAL IVP PRN (07:28)
[2023-05-25] MEDS ORDERED: HYDROmorphone 0.5 MG/0.5 ML SYRINGE IVP PRN (07:28)
[2023-05-25] MEDS ORDERED: fentaNYL 100 MCG/2 ML VIAL IVP PRN (07:28)
--- NOTE | 2023-05-25 07:28 | ANESTHESIA ---
Pre-Anesthesia VS, & Labs - Diagnosis ureteral tumor - Procedure L cystoscopy, L ureteroscopy, L ureteral stent Vital Signs: Temp Pulse Resp BP Pulse Ox O2 Flow Rate 36.3 C L 62 16 167/72 H 100 0 05/25/23 06:43 05/25/23 06:43 05/25/23 06:43 05/25/23 06:43 05/25/23 06:43 05/25/23 06:43 Height: 5 ft 4 in Weight (kg): 57.5 kg Body Mass Index: 21.7 BMI Classification: Normal - NPO >8 hours - Is Patient ?: No Home Medications and Allergies Home Medications: Ambulatory Orders Alendronate Sodium 70 mg PO OAW 05/22/23 Alendronate Sodium 70 mg PO OAW 05/22/23 Allergies/Adverse Reactions: Allergies Allergy/AdvReac Type Severity Reaction Status Date / Time Sulfa (Sulfonamide Allergy Intermediate Emesis Verified 05/25/23 07:08 Antibiotics) Anes History & Medical History - Anesthetic History Anesthesia Complications: reports: No previous complications Family history of Anesthesia Complications: Denies Family history of Malignant Hyperthermia: Denies - Medical History Cardiovascular: reports: None Pulmonary: reports: None Gastrointestinal: reports: None Urinary: reports: None Musculoskeletal: reports: None Endocrine/Autoimmune: reports: None Skin: reports: None Smoking Status: Current every day smoker Psychosocial: reports: Anxiety History of Cancer?: Yes - Surgical History Eyes Ears Nose Throat (EENT): reports: Tonsil/Adenoidectomy Gynecologic: reports: Hysterectomy Orthopedic: reports: Other Exam General: Alert, Oriented x3, Cooperative Dental: WNL Mouth Openin Fingerbreadth Neck Mobility: Normal Mallampati classification: II Thyromental Distance: 4-6 cm Respiratory: Lungs clear Cardiovascular: Regular rate Plan Anesthesia Type: General Consent for Procedure(s) Verified and Reviewed: Yes Code Status: Attempt Resuscitation ASA classification: 3-Severe systemic disease Is this case an emergency?: No
[2023-05-25] MEDS ORDERED: MIDAZOLAM 2 MG/2 ML VIAL ONE (07:30)
[2023-05-25] MEDS: LIDOCAINE JELLY 2% 6 ML JEL.PF.APP UR ONE (07:53)
[2023-05-25] MEDS: iohexoL-240 10 ML VIAL IVP ONE ×2 (07:53)
[2023-05-25] MEDS ORDERED: LACTATED RINGERS 1,000 ML IV SCH (08:00)
[2023-05-25] MEDS ORDERED: ePHEDrine 50 MG/ML VIAL IVP ONE (08:05)
[2023-05-25] MEDS ORDERED: HYDROcod/ACETAM 5/325 MG TABLET PO PRN (08:48)
--- NOTE | 2023-05-25 08:56 | Discharge Plan ---
Discharge Plan Problem Reviewed?: Yes Disposition: Home, Self Care Condition: Good Prescriptions: Docusate Sodium 100Mg Capsule [Colace 100Mg Capsule] 100 mg PO DAILY #7 cap HYDROcod/ACETAM 5/325 [Mahomet 5/325] 1 tab PO Q4H PRN #10 tablet PRN Reason: Pain oxyBUTYnin chloride [Oxybutynin Chloride ER] 5 mg PO DAILY #21 tab Diet: Regular Activity Restrictions: No Restrictions Shower Restrictions: No Driving Restrictions: No Instruction Topics: Stents Ureteral Additional Instructions or Follow Up instructions: You will be contacted for followup next week with Dr Lopez No Smoking: If you smoke, Please STOP! Call for help. Follow-up with: Drake Lopez MD [Provider Admit Priv/Credential] -
--- NOTE | 2023-05-25 08:59 | OPERATIVE REPORT ---
Operative Report - General Procedure Date: 05/25/23 Planned Procedure: Cystoscopy, left ureteroscopy, laser ablation of tumor, ureteral biopsy, stent placement Pre-Op Diagnosis: left ureteral mass Procedure Performed: Cystoscopy, left ureteroscopy, laser ablation of tumor, ureteral biopsy, stent placement, retrograde pyelogram Post Op Diagnosis: left ureteral mass - Procedure Note Primary Surgeon: John Anesthesia Provider: MIKE Kidd Anesthesia Technique: General LMA Pathology: left ureteral tumor Estimated Blood Loss (mL): 1 Findings: No tumors in her bladder. Severe left hydronephrosis. 360 degree tortuosity of proximal ureter. Mass was smooth, did not appear papillary. Possibly benign? Stent not in optimal position at the end, likely in proximal ureter Complications: none - Other Other Information/Narrative: After informed consent was obtained the patient was brought to the OR and laid the supine position. The patient was Necaise per anesthesia protocols and prepped and draped in usual sterile fashion in the dorsolithotomy position. A formal timeout was performed confirming the patient, procedure and laterality. A 22 Lithuanian scope was advanced easily into urinary bladder. Bladder inspected and full there were no masses, lesions or other concerns. A sensor wire was placed up the left ureter and it appeared to coil in the proximal ureter. A dual-lumen catheter was advanced over this and a retrograde pyelogram confirmed that she had a extremely tortuous proximal left ureter which was almost 360 degree spin. The wire was eventually able to traverse up into the kidney but did have significant tortuosity as well. We advanced the dual-lumen over this and then placed an Amplatz Super Stiff wire as well. The flexible ureteroscope was advanced over the sensor wire to the kidney. Pulling back we could see that there was a smooth large mass which seem to arise almost circumferentially from the ureter. There were not any papillary elements of note. Using a Piranha 3 Lithuanian biopsy we took 3 samples and placed them on [facility] and sent them for analysis. Using a 272 m laser fiber we laser ablated the tumor that we could see at a power of 1.0 a rate of 10. We ablated maybe half of the visible tumor. Given the significant tortuosity was very difficult to get a good angle and so we eventually stopped when we could not get any more easy access to the tumor. We then cleared the ureter under direct visualization of any other tumors. We placed a 6 Lithuanian 26 cm double-J ureteral stent. Despite significant ambulation it appeared that given the tortuosity of the ureter was difficult to pass this and so it is possible that it ended in the proximal ureter. We could not gain good access again and so we elected to leave it as it was. The bladder was emptied and a Uro-Jet was placed. The patient was reversed from anesthesia and brought to the PACU without further incident. She will follow-up in 1 week's time. All counts were correct.
--- NOTE | 2023-05-25 09:18 | XRAY Report ---
PROCEDURE: OR C-Arm Procedure INDICATIONS: stent placement FLUORO TIME: 3.1 min TECHNIQUE: 2 intraoperative fluoroscopic images obtained by urology service performing procedure COMPARISON: None. FINDINGS: 2 intraoperative images demonstrate stent placement on the left collecting system with contrast injec tion. No contrast extravasation visualized. IMPRESSION: 2 intraoperative fluoroscopic images demonstrate contrast injection and stent placement the left rafal l collecting system. Please see separately dictated urology procedure note for full details. Reviewed by: Amisha Gaming MD on 05/25/2023 9:17 AM PST Approved by: Amisha Gaming MD on 05/25/2023 9:17 AM PST Station ID: [id number]
[2023-05-25 09:25] VITALS: BP 152/67; O2SAT 99
--- NOTE | 2023-05-25 12:51 | ANESTHESIA POST OP EVALUATION ---
Anesthesia Post Eval - Post Anesthesia Eval Vitals: Last Vital Signs Temp 36.0 C L 05/25/23 09:15 Pulse 59 L 05/25/23 09:15 Resp 16 05/25/23 09:15 BP 152/67 H 05/25/23 09:15 Pulse Ox 99 05/25/23 09:15 O2 Flow Rate 0 05/25/23 06:43 CV Function Including HR & BP: Stable Pain Control: Satisfactory Nausea & Vomiting: Negative Mental Status: Baseline Respiratory Status: Airway Patent Hydration Status: Satisfactory Anesthesia Complications: None
== END 2023-05-25 06:35 | disposition home or self-care (01) ==
LOC: SDS 06:34
PROVIDERS: ATTEND Urology
PROC: 0T778DZ Dilation of Left Ureter with Intraluminal Device, Via Natural or Artificial Opening Endoscopic (ICD-10-PCS; 2023-05-25)
PROC: 0T578ZZ Destruction of Left Ureter, Via Natural or Artificial Opening Endoscopic (ICD-10-PCS; principal; 2023-05-25 07:30)
DX: N28.89 Other specified disorders of kidney and ureter (principal); F17.200 Nicotine dependence, unspecified, uncomplicated; N13.30 Unspecified hydronephrosis
CPT/HCPCS: 52332; 52354; C2617; J7120; Q9966

== ENCOUNTER 2023-07-21 08:58 | Outpatient (CLI) | payer MEDICARE, OTHER ==
--- NOTE | 2023-07-22 10:52 | Mammography Report ---
BILATERAL DIGITAL SCREENING MAMMOGRAM 3D/2D WITH EXAGGERATED CC: 07/21/2023 CLINICAL: Routine screening. Comparison is made to exams dated: 06/18/2022 mammogram, 06/17/2021 mammogram, 02/20/2020 mammogram, 05/02/2018 mammogram, and 03/01/2018 mammogram - [facility]. Both breasts are extremely dense, which lowers the sensitivity of mammography (category d />75% gland ular tissue). There is a round equal density asymmetry in the right breast posterior depth superior region seen on the mediolateral oblique view only. This is more prominent. No other significant masses, calcifications, or other findings are seen in either breast. IMPRESSION: INCOMPLETE: NEEDS ADDITIONAL IMAGING EVALUATION The round equal density asymmetry in the right breast is indeterminate. Additional views with possib le ultrasound are recommended. Based on the Tyrer Cuzick model (a risk assessment model) the patient's lifetime risk is 4.9% and her 10 year risk is 0.0%. According to the ACR, ACS, and NCCN guidelines, an annual breast MRI exam margi g with mammogram is recommended if the patient's lifetime risk is 20% or greater. This exam was interpreted at Station ID: [id number]. NOTE: For mammograms, a report in lay terms will be sent to the patient. Approximately 15% of breast malignancies will not be visualized mammographically. In the management of a palpable breast mass, a negative mammogram must not discourage biopsy of a clinically suspicious lesion. Electronically Signed By: Marine [email or web address]:07/21/2023 14:36:50 ACR BI-RADS Category 0: Incomplete 3340F PARENCHYMAL PATTERN: (VD) - The breast(s) demonstrate(s) extremely dense parenchyma, limiting the sen sitivity of mammography. BI-RADS CATEGORY: (0) - 0 Mammo and US [id number] Immediate follow-up LATERALITY: (B)
== END 2023-07-21 08:59 | disposition home or self-care (01) ==
LOC: DI.S 08:58
DX: Z12.31 Encounter for screening mammogram for malignant neoplasm of breast (principal); R92.8 Other abnormal and inconclusive findings on diagnostic imaging of breast; R92.30 Dense breasts, unspecified

== ENCOUNTER 2023-08-23 06:49 | Outpatient (CLI) | payer MEDICARE, OTHER ==
--- NOTE | 2023-08-23 20:24 | Ultrasound Report ---
PROCEDURE: Aorta Duplex Complete INDICATIONS: ATHEROSCLEROSIS OF AORTA TECHNIQUE: Color and pulse Doppler interrogation was performed of the aorta and iliac arterial systems, with angelina ge documentation. COMPARISON: None. FINDINGS: Aorta: 63 cm/sec, with triphasic flow. Right lower extremity: Proximal common iliac artery: 298cm/sec, with biphasic flow. Proximal external iliac artery: Not visualized Distal external iliac artery: Not visualized. Common femoral artery: 132 cm/sec, with triphasic flow. Sim-scale imaging description: Limited evaluation given overlying bowel gas. Left lower extremity: Proximal common iliac artery: 176 cm/sec, with triphasic flow. Proximal external iliac artery: Not visualized Distal external iliac artery: Not visualized Common femoral artery: 107 cm/sec, with triphasic flow. Sim-scale imaging description: Limited evaluation given overlying bowel gas. IMPRESSION: 1. Markedly Limited study given overlying bowel gas. If further characterization is warranted, CTA or MRA of the aorta and the pelvic arteries is recommended. 2. Elevated velocities within the proximal right common iliac artery which may be associated with a h emodynamically significant stenosis. Reviewed by: Heidi Leon MD on 08/23/2023 8:22 PM PDT Approved by: Heidi Leon MD on 08/23/2023 8:22 PM PDT Station ID: [id number]
--- NOTE | 2023-08-24 14:48 | Ultrasound Report ---
PROCEDURE: Abdomen Limited INDICATIONS: LIVER CYST TECHNIQUE: Real-time focused scanning was performed of the abdomen, with image documentation. COMPARISONS: None. FINDINGS: Liver: Liver is normal in size and homogeneous in echotexture. Multiple anechoic cystic lesions are visualized within the liver including a 2.8 cm cyst within the left lateral lobe and a 2.8 cm cyst w ithin the right anterior lobe. Gallbladder: No gallstones, sludge, wall thickening or pericholecystic edema. Biliary ducts: Intrahepatic bile ducts are non-dilated. Extrahepatic bile duct caliber measures 4 m m. Normal is 6-7 mm or less in diameter, or 10 mm or less post-cholecystectomy. Pancreas: Visualized portions of the pancreas are sonographically normal. Right kidney: Normal in size and echotexture. Right kidney measures cm long. No hydronephrosis or ne phrolithiasis. No solid masses. No complex renal cystic lesions which require follow-up. IVC: Intrahepatic inferior vena cava is patent. Miscellaneous: No free abdominal fluid. IMPRESSION: 1. Multiple simple hepatic cysts visualized. 2. No cholelithiasis or findings to suggest choledocholithiasis or acute cholecystitis. Reviewed by: Heidi Leon MD on 08/24/2023 2:47 PM PDT Approved by: Heidi Leon MD on 08/24/2023 2:47 PM PDT Station ID: [id number]
== END 2023-08-23 06:50 | disposition home or self-care (01) ==
LOC: DI 06:49
PROVIDERS: ATTEND Registered Nurse
DX: I70.0 Atherosclerosis of aorta (principal); K76.89 Other specified diseases of liver
CPT/HCPCS: 93978